=== PATIENT | female | born 1990 | race Two or more races ===

== ENCOUNTER 2024-03-12 12:14 | Emergency (ER) | payer MEDICAID, OTHER ==
[~2024-03-12] VITALS: Ht 172.7 cm; Wt 53.5 kg
[2024-03-12] MEDS: IV NS 0.9% 1,000 ML BAG IV ONE (13:42)
[2024-03-12 14:08] LABS: BASOPHILS % (AUTO) 0.6 % (0.0-2.0); EOSINOPHILS % (AUTO) 0.5 % (0.0-6.0); HEMATOCRIT 40 % (33-45); HEMOGLOBIN 12.9 g/dL (11.5-14.8); LYMPHOCYTES # (AUTO) 1.4 K/uL (0.8-4.8); LYMPHOCYTES % (AUTO) 25.3 % (20.0-44.0); MEAN CORPUSCULAR HEMOGLOBIN 26 PG (26.0-33.0); MEAN CORPUSCULAR HGB CONC 33 g/dl (31.0-36.0); MEAN CORPUSCULAR VOLUME 81 fL (82-100); MONOCYTES # (AUTO) 0.6 K/uL (0.1-1.30); MONOCYTES % (AUTO) 11.2 % (2.0-12.0); NEUTROPHILS # (AUTO) 3.4 K/uL (1.8-8.9); NEUTROPHILS % (AUTO) 62.4 % (43.0-81.0); PLATELET COUNT (AUTO) 317 K/uL (150-450); RED BLOOD CELL COUNT(AUTO) 4.88 MIL/uL (4.0-5.2); RED CELL DISTRIBUTION WIDTH 16.4 % (11.5-15.0); WHITE BLOOD COUNT (AUTO) 5.4 K/uL (4.3-11.0)
[2024-03-12 14:39] LABS: CALCIUM, SERUM 8.9 mg/dL (8.5-10.1); POTASSIUM 3.2 mmol/L (3.5-5.1)
[2024-03-12 14:43] LABS: APPEARANCE,URINE CLEAR (CLEAR); BILIRUBIN,URINE NEGATIVE (NEGATIVE); BLOOD, URINE NEGATIVE Ery/uL (NEGATIVE); COLOR,URINE YELLOW (YELLOW); KETONES,URINE NEGATIVE (NEGATIVE); LEUKOCYTE ESTERASE ,URINE 2+ (NEGATIVE); NITRITE, URINE NEGATIVE (NEGATIVE); PROTEIN,URINE NEGATIVE (NEGATIVE); UGLUCOSE NEGATIVE (NEGATIVE)
[2024-03-12 14:46] LABS: PREGNANCY TEST URINE QUAL NEGATIVE (NEGATIVE)
[2024-03-12 14:48] LABS: BILIRUBIN,DIRECT 0.2 mg/dL (0.0-0.2); BILIRUBIN,TOTAL 0.5 mg/dL (0.2-1.0); TOTAL PROTEIN, SERUM 8.2 g/dL (6.4-8.2)
[2024-03-12 15:18] LABS: ADD URINE CULTURE YES; BACTERIA,URINE Many /HPF (None Seen)
[2024-03-12 15:19] LABS: SQUAMOUS EPITHELIAL CELL,UR Moderate /HPF (None Seen)
[2024-03-12 15:20] LABS: RBC,URINE 0-2 /HPF (0-2)
[2024-03-12] MEDS ORDERED: POLY17PO4 PO ×2 (16:22→17:38)
[2024-03-12] MEDS ORDERED: CEFD300C3 PO ×2 (16:22→17:38)
[2024-03-12] MEDS: CEFTRIAXONE 1 G in IV D5W 50 ML IV ONE (16:31)
[2024-03-12 17:44] VITALS: BP 124/71; TEMP 98.6; O2SAT 99
== END 2024-03-12 18:00 | disposition home or self-care (01) ==
LOC: ER 12:18
DX: N83.202 Unspecified ovarian cyst, left side (principal); N39.0 Urinary tract infection, site not specified; K59.00 Constipation, unspecified; R10.2 Pelvic and perineal pain; R53.83 Other fatigue
CPT/HCPCS: 99285; 74176; 96365; 76856; 96361; 85025; 80048; 87086; 80076; 84703; 81001; 36415; 84443; 84702; J0696; J7060; J7030